=== PATIENT | male | born 2005 | race Hispanic/Latino ===

== ENCOUNTER 2024-05-21 03:46 | Emergency (ER) | payer SELFPAY | END 2024-05-21 05:17 | LOC: ERS 03:46 | DX: S00.83XA Contusion of other part of head, initial encounter (principal); S00.81XA Abrasion of other part of head, initial encounter; S09.90XA Unspecified injury of head, initial encounter; R04.0 Epistaxis; F17.290 Nicotine dependence, other tobacco product, uncomplicated; V00.831A Fall from motorized mobility scooter, initial encounter | CPT/HCPCS: 70450; 70486; 72125 ==